=== PATIENT | female | born 1950 | race Caucasian/White ===

== ENCOUNTER 2017-01-17 08:03 | Day surgery (SDC) | payer MEDICARE, OTHER ==
--- NOTE | ~2017-01-17 | EGD ---
EGD REPORT [facility] [address] [address] NAME: TONYA GRIMM : [birth year] STATUS : REG [facility] PAT#: [id number] AGE: 66 ADM/REG DATE : 01/17/17 MR#: [id number] REPORT SERV DATE: 01/17/17 DICTATED BY: ABIEL WOODSON DATE: 01/17/17 REPORT STATUS : Draft [facility]: [facility] DATE: 01/17/17 [facility] Patient Name: Tonya Grimm Date of : 1950 Attending MD: ABIEL WOODSON MD Procedure Date No Time: 01/17/2017 Procedure: Colonoscopy Indications: Screening for colorectal malignant neoplasm Referring MD: AMY LUCAS MD Medicines: as per anesthesia Complications: No immediate complications. Procedure: Pre-Anesthesia Assessment: - ASA Grade Assessment: II - A patient with mild systemic disease. After I obtained informed consent, the scope was passed under direct vision. Throughout the procedure, the patient's blood pressure, pulse, and oxygen saturations were monitored continuously. The PCF [id number] was introduced through the anus and advanced to the cecum, identified by appendiceal orifice and ileocecal valve. The colonoscopy was performed without difficulty. The patient tolerated the procedure. The quality of the bowel preparation was fair. Findings: The perianal and digital rectal examinations were normal. The colon (entire examined portion) appeared normal. Impression: - The entire examined colon is normal. Recommendation: - Repeat colonoscopy in 10 years for surveillance. Procedure Code(s): --- Professional --- 12527, Colonoscopy, flexible, proximal to splenic flexure; diagnostic, with or without collection of specimen(s) by brushing or washing, with or without colon decompression (separate procedure) Diagnosis Code(s): --- Professional --- Z12.11, Encounter for screening for malignant neoplasm of colon CPT copyright 2013 [employer]. All rights reserved. EGD REPORT [facility] [address] [id number] NAME: TONYA GRIMM : [birth year] STATUS : REG [facility] PAT#: [id number] AGE: 66 ADM/REG DATE : 01/17/17 MR#: [id number] REPORT SERV DATE: 01/17/17 DICTATED BY: ABIEL WOODSON. DATE: 01/17/17 REPORT STATUS : Draft TRANSCRIBED BY: [employer] DATE: 01/17/17 The codes documented in this report are preliminary and upon director of application development review may be revised to meet current compliance requirements. ABIEL WOODSON MD 01/17/2017 9:40 AM This report has been signed electronically. Number of Addenda: 0 Note Initiated On: 01/17/2017 9:08 AM Scope Withdrawal Time 0 hours 11 minutes 6 seconds [id number] [id number]
[~2017-01-17 08:03] MED LIST: ASAB PO; MULTIPLE VIT PO
== END 2017-01-17 23:59 | disposition home or self-care (01) ==
LOC: DMU 08:03
PROVIDERS: Internal Medicine Gastroenterology
PROC: 0DJD8ZZ Inspection of Lower Intestinal Tract, Via Natural or Artificial Opening Endoscopic (ICD-10-PCS; principal; 2017-01-17 09:30)
DX: Z12.11 Encounter for screening for malignant neoplasm of colon (principal); J45.909 Unspecified asthma, uncomplicated; Z88.2 Allergy status to sulfonamides; Z79.82 Long term (current) use of aspirin; Z79.899 Other long term (current) drug therapy; Z98.890 Other specified postprocedural states

== ENCOUNTER 2017-04-26 02:26 | Emergency (ER) | payer MEDICARE, OTHER ==
[2017-04-26 02:37] LABS: BASOPHILS ABSOLUTE 0.04 10/3/uL (0.0-0.16); EOSINOPHILS ABSOLUTE 0.08 10/3/uL (0.0-0.53); ER CBC TAT 0 Hrs 00 Mins; HEMOGLOBIN 12.6 g/dL (12.0-16.0); IMMATURE GRANULOCYTES 0.3 %; IMMATURE GRANULOCYTES ABSOLUTE 0.01 10/3/uL (0.0-0.11); LYMPHOCYTES 13.5 %; LYMPHOCYTES ABSOLUTE 0.54 10/3/uL (0.67-4.30); MEAN CORPUS HGB CONC 32.3 g/dL (32.0-36.0); MEAN CORPUSCULAR HEMOGLOB 28.1 pg (26.0-34.0); MEAN CORPUSCULAR VOLUME 87.1 fL (80-100); MEAN PLATELET VOLUME 9.6 fL (9.2-13.0); MONOCYTES 13.5 %; MONOCYTES ABSOLUTE 0.54 10/3/uL (0.21-1.20); NEUTROPHILS 69.7 %; NEUTROPHILS ABSOLUTE 2.79 10/3/uL (2.02-8.40); PLATELET COUNT 214 10/3/uL (150-400); RBC DISTRIBUTION WIDTH 13.5 % (12.0-16.0); RED CELL COUNT 4.48 10/6/uL (4.0-5.6)
[2017-04-26 02:38] LABS: MANUAL DIFF NO %
[2017-04-26 02:45] LABS: PARTIAL THROMBO TIME 31.6 SEC (22.5-37.2); PROTIME (NOT ORD) 12.8 SEC (12.0-14.5)
[2017-04-26 02:52] LABS: BUN (BLOOD UREA NITROGEN) 13 MG/DL (6-23); CALCIUM, SERUM 8.2 MG/DL (8.5-10.4); CHEST PAIN PROFILE TAT 0 Hrs 00 Mins; CHLORIDE, SERUM 103 MMOL/L (96-112); CO2 (CARBON DIOXIDE) 28 MMOL/L (24-34); GFR AFRICAN AMERICAN 77 ML/MIN (>=60); GFR NON AFRICAN AMERICAN 67 ML/MIN (>=60); GLUCOSE, SERUM 89 MG/DL (60-99); POTASSIUM, SERUM 3.8 MMOL/L (3.5-5.3); SODIUM, SERUM 138 MMOL/L (135-148); TROPONIN I <0.02 NG/ML (<0.05)
== END 2017-04-26 04:24 | disposition home or self-care (01) ==
LOC: ER 02:26
PROVIDERS: Specialist
DX: R68.84 Jaw pain (principal); J45.909 Unspecified asthma, uncomplicated; Z85.820 Personal history of malignant melanoma of skin; Z88.2 Allergy status to sulfonamides; Z79.82 Long term (current) use of aspirin; Z79.899 Other long term (current) drug therapy
CPT/HCPCS: 70450; 71010; 80048; 83735; 84484; 85025; 85610; 85730; 93005; 93017; 99284